=== PATIENT | female | born 1930 | race African-American/Black ===

== ENCOUNTER 2017-05-24 12:52 | Emergency (ER) | payer OTHER ==
[~2017-05-24] VITALS: Ht 152.4 cm; Wt 59.0 kg
[2017-05-24 16:50] VITALS: BP 132/57
== END 2017-05-24 17:10 | disposition home or self-care (01) ==
LOC: ER 14:10
DX: F32.9 Major depressive disorder, single episode, unspecified (principal); F41.9 Anxiety disorder, unspecified
CPT/HCPCS: 99283